=== PATIENT | female | born 1985 | race Caucasian/White ===

== ENCOUNTER → 2017-12-27 | Outpatient (CLI) | payer BC | LOC: FIMAGING 14:10 | PROVIDERS: ATTEND Advanced Practice Midwife | DX: O36.80X0 Pregnancy with inconclusive fetal viability, not applicable or unspecified (principal); Z3A.01 Less than 8 weeks gestation of pregnancy ==

== ENCOUNTER → 2018-06-24 | Outpatient (CLI) | payer BC | LOC: FIMAGING 07:12 | PROVIDERS: ATTEND Advanced Practice Midwife | DX: Z34.82 Encounter for supervision of other normal pregnancy, second trimester (principal); Z14.1 Cystic fibrosis carrier; Z3A.20 20 weeks gestation of pregnancy ==